=== PATIENT | female | born 1955 | race Caucasian/White ===

== ENCOUNTER → 2023-12-01 10:52 | Outpatient (REF) | payer MEDICARE, OTHER, SELFPAY | LOC: HWRAD 10:52 | PROVIDERS: ATTENDING PHYSICIAN Physician Assistant; FAMILY PHYSICIAN Family Medicine | DX: Z87.440 Personal history of urinary (tract) infections (principal); R39.15 Urgency of urination; N39.0 Urinary tract infection, site not specified | CPT/HCPCS: 76770 ==